=== PATIENT | male | born 1965 | race Caucasian/White ===

== ENCOUNTER 2017-03-31 17:53 | Emergency (ER) | payer MEDICAID, OTHER ==
[~2017-03-31] VITALS: Ht 172.7 cm; Wt 80.0 kg
[~2017-03-31 17:53] MED LIST: ASPI81 PO; PRIL40CA PO; SIMV20 PO; TOPR100T15 PO
[2017-03-31 17:54] VITALS: BP 126/79; PULSE 89; RESP 20; TEMP 98.4; O2SAT 94
[2017-03-31] MEDS ORDERED: IOHEXOL 350 MG/ML 10 ML VIAL (for RAD DIAG) IVCONTRAST ONE (17:54)
--- NOTE | 2017-03-31 18:02 | PD ---
Physical Exam Date Seen by Provider: Mar 31, 2017 Time Seen by Provider: 18:00 Narrative 51 yo male here for evaluation of chron's pain. History of Chrons. Having abdominal pain. Feeling weak. Chest pain as well. Having drainage from abscess. Similar to previous flares. Vitals are stable in triage. Awaiting bed placement. Data Data Last Documented VS Vital Signs Date Time Temp Pulse Resp B/P (MAP) Pulse Ox O2 Delivery O2 Flow Rate FiO2 03/31/17 17:54 98.4 89 20 126/79 (95) 94 Room Air [facility] Medical Record Reviewed: Yes Supervised Visit with VIRA: Pratik Bales Mar 31, 2017 18:02
[2017-03-31 19:12] VITALS: BP 121/71; PULSE 81; RESP 16; O2SAT 95
[2017-03-31] MEDS ORDERED: ZOCO20TA PO (19:17)
[2017-03-31] MEDS ORDERED: TOPR50TA PO (19:17)
[2017-03-31] MEDS ORDERED: OMEP40CA2 PO (19:17)
--- NOTE | 2017-03-31 21:16 | PD ---
HPI Chief Complaint: Medical Clearance Time Seen by Provider: 21:08 Travel History International Travel<30 days: No Contact w/Intl Traveler<30days: No Traveled to known affect area: No History of Present Illness HPI 51 YO M with PMH of Crohn disease presents to the ED for evaluation of "pain all over," rectal abscess. Patient rates his pain 8 /10. No alleviating or exacerbating factors reported. Patient denies fever, chills, nausea, vomiting. He endorses loose bowel movements. He states that he has a rectal drain that' s been in place since July. He was under the care of a colorectal surgeon in [place], prescribed Remicade. Last dose in August. He states that he saw Dr. Vale after moving to [place] who referred him to Dr. Rodriguez. He states that in the interim he has lost his insurance and is unable to see the colorectal surgeon. He treated at home with Tylenol with no improvement of his symptoms. PFSH Past Medical History Medical other: Yes (crohns) Past Surgical History Other Surgery: Yes (inguinal hernia, crohns) Social History Alcohol Use: No Tobacco Use: No Substance Use: No Allergies-Medications (Allergen,Severity, Reaction): Coded Allergies: ibuprofen (Verified Allergy, Severe, RASH, 03/31/17) Reported Meds & Prescriptions Reported Meds & Active Scripts Active Lortab (Hydrocodone-Acetaminophen) 5-325 Mg Tab 1 Tab PO Q6H PRN Zofran Odt (Ondansetron Odt) 4 Mg Tab 4 Mg SL Q6HR PRN Reported Toprol XL (Metoprolol Succinate) 50 Mg Tab 50 Mg PO DAILY Zocor (Simvastatin) 20 Mg Tab 20 Mg PO DAILY Omeprazole 40 Mg Cap 40 Mg PO DAILY Review of Systems Except as stated in HPI: all other systems reviewed are Neg Physical Exam Narrative GENERAL: Well-nourished, well-developed obese white male in no acute distress. SKIN: Focused skin assessment warm/dry. No rash in bilateral groins. HEAD: Normocephalic. EYES: No scleral icterus. No injection or drainage. NECK: Supple, trachea midline. No JVD or lymphadenopathy. CARDIOVASCULAR: Regular rate and rhythm without murmurs, gallops, or rubs. RESPIRATORY: Breath sounds clear and equal bilaterally. No accessory muscle use. GASTROINTESTINAL: Abdomen soft, non-tender, nondistended. Active bowel sounds. RECTAL: Chronic-appearing rectal abscess with drain in place. No surrounding tenderness, erythema, edema. No active drainage. MUSCULOSKELETAL: No cyanosis, or edema. BACK: Nontender without obvious deformity. No CVA tenderness. Data Data Last Documented VS Vital Signs Date Time Temp Pulse Resp B/P (MAP) Pulse Ox O2 Delivery O2 Flow Rate FiO2 04/01/17 00:37 03/31/17 19:12 81 16 95 Room Air 03/31/17 17:54 98.4 Orders Orders Complete Blood Count With Diff (03/31/17 21:38) Comprehensive Metabolic Panel (03/31/17 21:38) C-Reactive Protein (Crp) (03/31/17 21:38) Westergren Sedimentation Rate (03/31/17 21:38) Mandatory Outpatient Referral (03/31/17 21:48) Ct Abd/Pel W Iv Contrast(Rout) (03/31/17 21:59) Morphine Inj (Morphine Inj) (03/31/17 22:45) Iohexol 350 Inj (Omnipaque 350 Inj) (03/31/17 17:54) Ed Discharge Order (03/31/17 23:56) Labs Laboratory Tests Test 03/31/17 21:45 White Blood Count 7.2 TH/MM3 Red Blood Count 4.93 MIL/MM3 Hemoglobin 14.2 GM/DL Hematocrit 42.2 % Mean Corpuscular Volume 85.6 FL Mean Corpuscular Hemoglobin 28.9 PG Mean Corpuscular Hemoglobin Concent 33.7 % Red Cell Distribution Width 13.4 % Platelet Count 220 TH/MM3 Mean Platelet Volume 7.5 FL Neutrophils (%) (Auto) 62.6 % Lymphocytes (%) (Auto) 26.4 % Monocytes (%) (Auto) 7.2 % Eosinophils (%) (Auto) 3.2 % Basophils (%) (Auto) 0.6 % Neutrophils # (Auto) 4.5 TH/MM3 Lymphocytes # (Auto) 1.9 TH/MM3 Monocytes # (Auto) 0.5 TH/MM3 Eosinophils # (Auto) 0.2 TH/MM3 Basophils # (Auto) 0.0 TH/MM3 CBC Comment DIFF FINAL Differential Comment Erythrocyte Sedimentation Rate 24 mm/hr Blood Urea Nitrogen 14 MG/DL Creatinine 0.93 MG/DL Random Glucose 83 MG/DL Total Protein 7.6 GM/DL Albumin 3.5 GM/DL Calcium Level 8.8 MG/DL Alkaline Phosphatase 97 U/L Aspartate Amino Transf (AST/SGOT) 22 U/L Alanine Aminotransferase (ALT/SGPT) 21 U/L Total Bilirubin 0.3 MG/DL Sodium Level 139 MEQ/L Potassium Level 3.9 MEQ/L Chloride Level 102 MEQ/L Carbon Dioxide Level 28.4 MEQ/L Anion Gap 9 MEQ/L Estimat Glomerular Filtration Rate 85 ML/MIN C-Reactive Protein 0.62 MG/DL MDM Medical Decision Making Medical Screen Exam Complete: Yes Emergency Medical Condition: Yes Differential Diagnosis Crohn's flare versus rectal abscess versus bowel obstruction versus intraabdominal abscess versus other Narrative Course 51 YO M with PMH of Crohn disease presents to the ED for evaluation of 01/29 "pain all over," rectal abscess, loose BMs. Patient denies fever, chills, nausea, vomiting. He states that he has a rectal drain that's been in place since July. Placed a colorectal surgeon in [place], prescribed Remicade. Last dose in August. He states that he saw Dr. Vale after moving to [place] who referred him to Dr. Rodriguez. He states that in the interim he has lost his insurance and is unable to see the colorectal surgeon. Patient's afebrile on presentation. Physical exam reveals a nontoxic-appearing obese white male in no acute distress. Abdominal exam is unremarkable. 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 Drain is in place. No active drainage. IV was established. Patient was administered 4 mg morphine IV. CBC, CMP, UA, sedimentation rate, CRP, CT abdomen and pelvis ordered and pending. Patient signed out to Dr. Sanchez at change of shift. Please see her note for disposition. Scripts Hydrocodone-Acetaminophen (Lortab) 5-325 Mg Tab 1 TAB PO Q6H Y for PAIN, #7 TAB 0 Refills Prov: Batsheva Sanchez MD 03/31/17 Ondansetron Odt (Zofran Odt) 4 Mg Tab 4 MG SL Q6HR Y for Nausea/Vomiting, #10 TAB 0 Refills Prov: Batsheva Sanchez MD 03/31/17 Casandra Moore Mar 31, 2017 21:16
[2017-03-31 22:03] LABS: AUTOMATED NEUTROPHIL # 4.5 TH/MM3 (1.8-7.7); BASOPHIL % 0.6 % (0.0-2.0); EOSINOPHIL # 0.2 TH/MM3 (0-0.4); EOSINOPHIL % 3.2 % (0.0-4.0); HEMATOCRIT 42.2 % (39.0-51.0); HEMO FLAGS DIFF FINAL; LYMPH % 26.4 % (9.0-44.0); LYMPHOCYTE # 1.9 TH/MM3 (1.0-4.8); MEAN CELL VOLUME 85.6 FL (80.0-100.0); MEAN CORPUSCULAR HEMOGLOBIN 28.9 PG (27.0-34.0); MEAN CORPUSCULAR HGB CONC 33.7 % (32.0-36.0); MONO % 7.2 % (0.0-8.0); NEUT % 62.6 % (16.0-70.0); PLATELET COUNT 220 TH/MM3 (150-450); RED BLOOD COUNT 4.93 MIL/MM3 (4.50-5.90); RED CELL DISTRIBUTION WIDTH 13.4 % (11.6-17.2); WHITE BLOOD COUNT 7.2 TH/MM3 (4.0-11.0)
[2017-03-31 22:26] LABS: ALT (GPT) 21 U/L (12-78)
[2017-03-31 22:27] LABS: ALKALINE PHOSPHATASE 97 U/L (45-117); TOTAL BILIRUBIN ADULT 0.3 MG/DL (0.2-1.0)
[2017-03-31 22:34] LABS: ANION GAP 9 MEQ/L (5-15); AST (GOT) 22 U/L (15-37); BICARBONATE 28.4 MEQ/L (21.0-32.0); CHLORIDE 102 MEQ/L (98-107); GLOMERULAR FILTRATION RATE 85 ML/MIN (>89); POTASSIUM 3.9 MEQ/L (3.5-5.1); SODIUM (NA) 139 MEQ/L (136-145)
[2017-03-31 22:40] LABS: BLOOD UREA NITROGEN 14 MG/DL (7-18)
[2017-03-31] MEDS ORDERED: MORPHINE SULFATE 4 MG/ML INJ IV PUSH ONE (22:45)
--- NOTE | 2017-03-31 22:49 | RADRPT ---
EXAM DATE/TIME: 03/31/2017 22:33 [facility] COMPARISON: No previous studies available for comparison. INDICATIONS : Abdomen pain with body aches. History of Crohn's. IV CONTRAST: 95 cc Omnipaque 350 (iohexol) IV ORAL CONTRAST: No oral contrast ingested. RADIATION DOSE: 26.42 CTDIvol (mGy) ; Patient body habitus MEDICAL HISTORY : Crohn's disease. SURGICAL HISTORY : None. ENCOUNTER: Initial ACUITY: 1 day PAIN SCALE: 7/10 LOCATION: Bilateral abdomen TECHNIQUE: Volumetric scanning of the abdomen and pelvis was performed. Using automated exposure control and ad justment of the mA and/or kV according to patient size, radiation dose was kept as low as reasonably achievable to obtain optimal diagnostic quality images. DICOM format image data is available electro nically for review and comparison. FINDINGS: LOWER LUNGS: The visualized lower lungs are clear. LIVER: Homogeneous density without lesion. There is no dilation of the biliary tree. No calcified gallston es. SPLEEN: Normal size without lesion. PANCREAS: Within normal limits. KIDNEYS: Normal in size and shape. There is no mass, stone or hydronephrosis. ADRENAL GLANDS: Within normal limits. VASCULAR: There is no aortic aneurysm. BOWEL/MESENTERY: The stomach, small bowel, and colon demonstrate no acute abnormality. There is no free intraperitone al air or fluid. The appendix is unremarkable. The terminal ileum is within normal limits. No definit e inflammatory changes are demonstrated. There some mild diverticulosis of the sigmoid colon without inflammatory changes. ABDOMINAL WALL: Within normal limits. RETROPERITONEUM: A few small nonspecific para-aortic nodes are demonstrated. The largest measuring 1.4 cm at the level of the kidneys. BLADDER: No wall thickening or mass. REPRODUCTIVE: Within normal limits. INGUINAL: There appears to be a right inguinal hernia containing mesenteric fat. Left inguinal region is unrema rkable. A few nonspecific bilateral inguinal lymph nodes. MUSCULOSKELETAL: Within normal limits for patient age. CONCLUSION: 1. No evidence of inflammatory bowel disease is seen at this time. 2. Diverticulosis of the sigmoid without inflammatory changes. 3. A few nonspecific para-aortic lymph nodes are demonstrated. 4. Right inguinal hernia containing mesenteric fat. Randal Conteh MD on March 31, 2017 at 22:43 Board Certified Radiologist. This report was verified electronically.
[2017-03-31] MEDS ORDERED: HYDR-3533 PO (23:59)
[2017-03-31] MEDS ORDERED: ZOFR4TAB3 SL (23:59)
--- NOTE | 2017-04-01 | PD ---
Physical Exam Date Seen by Provider: Mar 31, 2017 Time Seen by Provider: 23:15 Narrative GENERAL: Well-developed well-nourished male in no acute distress no respiratory distress SKIN: Warm and dry. GASTROINTESTINAL: Abdomen soft, non-tender, nondistended. Buttock: Rectal exam deferred however right buttock cheek shows plastic drain in place with scant area of focal induration no active drainage no fluctuance no subcutaneous gas noted to palpation minimally tender to direct palpation. Data Data Last Documented VS Vital Signs Date Time Temp Pulse Resp B/P (MAP) Pulse Ox O2 Delivery O2 Flow Rate FiO2 03/31/17 19:12 81 16 121/71 (88) 95 Room Air 03/31/17 17:54 98.4 Orders Orders Complete Blood Count With Diff (03/31/17 21:38) Comprehensive Metabolic Panel (03/31/17 21:38) C-Reactive Protein (Crp) (03/31/17 21:38) Westergren Sedimentation Rate (03/31/17 21:38) Mandatory Outpatient Referral (03/31/17 21:48) Ct Abd/Pel W Iv Contrast(Rout) (03/31/17 21:59) Morphine Inj (Morphine Inj) (03/31/17 22:45) Iohexol 350 Inj (Omnipaque 350 Inj) (03/31/17 17:54) Ed Discharge Order (03/31/17 23:56) Labs Laboratory Tests Test 03/31/17 21:45 White Blood Count 7.2 TH/MM3 Red Blood Count 4.93 MIL/MM3 Hemoglobin 14.2 GM/DL Hematocrit 42.2 % Mean Corpuscular Volume 85.6 FL Mean Corpuscular Hemoglobin 28.9 PG Mean Corpuscular Hemoglobin Concent 33.7 % Red Cell Distribution Width 13.4 % Platelet Count 220 TH/MM3 Mean Platelet Volume 7.5 FL Neutrophils (%) (Auto) 62.6 % Lymphocytes (%) (Auto) 26.4 % Monocytes (%) (Auto) 7.2 % Eosinophils (%) (Auto) 3.2 % Basophils (%) (Auto) 0.6 % Neutrophils # (Auto) 4.5 TH/MM3 Lymphocytes # (Auto) 1.9 TH/MM3 Monocytes # (Auto) 0.5 TH/MM3 Eosinophils # (Auto) 0.2 TH/MM3 Basophils # (Auto) 0.0 TH/MM3 CBC Comment DIFF FINAL Differential Comment Erythrocyte Sedimentation Rate 24 mm/hr Blood Urea Nitrogen 14 MG/DL Creatinine 0.93 MG/DL Random Glucose 83 MG/DL Total Protein 7.6 GM/DL Albumin 3.5 GM/DL Calcium Level 8.8 MG/DL Alkaline Phosphatase 97 U/L Aspartate Amino Transf (AST/SGOT) 22 U/L Alanine Aminotransferase (ALT/SGPT) 21 U/L Total Bilirubin 0.3 MG/DL Sodium Level 139 MEQ/L Potassium Level 3.9 MEQ/L Chloride Level 102 MEQ/L Carbon Dioxide Level 28.4 MEQ/L Anion Gap 9 MEQ/L Estimat Glomerular Filtration Rate 85 ML/MIN C-Reactive Protein 0.62 MG/DL MDM Medical Record Reviewed: Yes Supervised Visit with VIRA: Yes Interpretation(s) CBC & BMP Diagram 03/31/17 21:45 Total Protein 7.6, Albumin 3.5, Calcium Level 8.8, Alkaline Phosphatase 97, Aspartate Amino Transf (AST/SGOT) 22, Alanine Aminotransferase (ALT/SGPT) 21, Total Bilirubin 0.3 Vital Signs Date Time Temp Pulse Resp B/P (MAP) Pulse Ox O2 Delivery O2 Flow Rate FiO2 03/31/17 19:12 81 16 121/71 (88) 95 Room Air 03/31/17 17:54 98.4 89 20 126/79 (95) [address] abd/pel: CONCLUSION: 1. No evidence of inflammatory bowel disease is seen at this time. 2. Diverticulosis of the sigmoid without inflammatory changes. 3. A few nonspecific para-aortic lymph nodes are demonstrated. 4. Right inguinal hernia containing mesenteric fat. Randal Conteh MD on March 31, 2017 at 22:43 Board Certified Radiologist. This report was verified electronically. Differential Diagnosis Buttock pain, retained drain, fistula, exacerbation inflammatory bowel disease/ Crohn's, diverticulitis Narrative Course Accepted in transfer of care from [facility] for follow-up of imaging study and patient disposition CT abdomen and pelvis reveals no acute intra-abdominal or pelvic process no evidence for active inflammatory bowel disease/Crohn's fistula abscess or diverticulitis; area of buttock discussed with on-call radiologist sees foreign body consistent with possible drain mild area of induration but no abscess or acute process based on what is available to evaluate radiographically Patient's case discussed with on-call colorectal surgeon Dr. Rodriguez who recommends outpatient follow-up and will address removal of drain although not harmful at this time for this patient Patient's information shared with the patient and his spouse at bedside patient is comfortable at this time is aware of imaging results lab results and is stable for outpatient follow-up has mandatory referral to see colorectal surgeon Dr. Rodriguez and is agreeable to this. Physician Communication Physician Communication discussed with Dr Rodriguez --will see as outpatient Diagnosis Primary Impression: Buttock wound Additional Impression: H/O Crohn's disease Referrals: Jose Alejandro Rodriguez MD call for appointment Patient Instructions: General Instructions Additional Instruction: Increase fluid hydration Follow-up with colorectal surgeon Dr. Rodriguez Take acetaminophen/Tylenol as needed for fever 100.4F or greater Take pain medication as prescribed as needed for pain greater than 5/10 in intensity Takes Zofran as prescribed as needed for nausea and/or vomiting Return to the emergency department for any concerns or change in condition Med/Other Pt SpecificInfo: Prescription(s) given Scripts Hydrocodone-Acetaminophen (Lortab) 5-325 Mg Tab 1 TAB PO Q6H Y for PAIN, #7 TAB 0 Refills Prov: Batsheva Sanchez MD 03/31/17 Ondansetron Odt (Zofran Odt) 4 Mg Tab 4 MG SL Q6HR Y for Nausea/Vomiting, #10 TAB 0 Refills Prov: Batsheva Sanchez MD 03/31/17 Disposition: 01 DISCHARGE HOME Condition: Stable Batsheva Sanchez MD Apr 01, 2017 00:00
== END 2017-04-01 00:38 | disposition home or self-care (01) ==
LOC: NEPC 17:53
DX: S31.819A Unspecified open wound of right buttock, initial encounter (principal); K60.4 Rectal fistula; K50.90 Crohn's disease, unspecified, without complications; X58.XXXA Exposure to other specified factors, initial encounter
CPT/HCPCS: 74177; 80053; 85025; 85652; 86140; 96374; 99285; J2270; Q9967

== ENCOUNTER → 2017-04-15 | Day surgery (SDC) | payer OTHER ==
[~2017-04-15] VITALS: Ht 172.7 cm; Wt 130.5 kg
[~2017-04-15] MED LIST changes: -ASPI81 PO; +CHLORHEXIDINE GLUCONATE 2 % 1 PACK (2 CLOTHS) TOPICAL PRN; +DO NOT ADM ANY ANTICOAGULANT DRUGS PRN; +GLYCOPYRROLATE 1 MG/5 ML SYRINGE IV PUSH ONE; +INSULIN HUMAN REGULAR 1,000 UNITS/10 ML VIAL SQ PRN; +LACTATED RINGER'S 1000 ML IV PRN; +LIDOCAINE HCL 1% PF 5 ML AMPULE OTHER ONE; +MAPA500T13 PO; +METOPROLOL TARTRATE 25 MG TAB PO PRN; +MIDAZOLAM HCL 2 MG/2 ML VIAL IV ONE; +MORPHINE SULFATE 2 MG/ML INJ IV PRN; +NEOSTIGMINE 3 MG/3 ML SYR IV ONE; +OMEP40CA2 PO; +ONDANSETRON HCL 4 MG/2 ML VIAL IV PRN; +ONDANSETRON HCL 4 MG/2 ML VIAL IV PUSH ONE; +PHENYLEPH/NS 1000 MCG/10 ML SYR IV ONE; +POVIDONE IODINE 5% (ANTISEPSIS KIT) 4 APPLICATIONS EACH NARE PRN; -PRIL40CA PO; +PROPOFOL 200 MG/20 ML AMP IV ONE; +ROCURONIUM INJ 50 MG/5 ML SYRINGE IV PUSH ONE; +SILVER SULFADIAZINE/LIDOCAINE CREAM 60 GM JAR RECTAL ONE; -SIMV20 PO; +SODIUM CHLORID 0.9% 500 ML IV PRN; -TOPR100T15 PO; +TOPR50TA PO; +ZOCO20TA PO; +oxyCODONE/ACETAMINOPHEN 5 MG/325 MG TAB PO PRN
--- NOTE | 2017-04-15 08:29 | PD.HP.UP ---
H&P Update Note The Pre-Admit History and Physical Examination regarding the above named patient was reviewed (including, but not limited to, vital signs, heart, lungs, co-morbid conditions), and upon re-examination it is noted that: the patient's condition has not significantly changed since the last examination. Jose Alejandro Rodriguez MD Apr 15, 2017 08:29
[2017-04-15 09:05] LABS: AUTOMATED NEUTROPHIL # 4.6 TH/MM3 (1.8-7.7); BASOPHIL % 0.3 % (0.0-2.0); EOSINOPHIL # 0.2 TH/MM3 (0-0.4); EOSINOPHIL % 3.6 % (0.0-4.0); HEMATOCRIT 41.1 % (39.0-51.0); LYMPH % 20.4 % (9.0-44.0); LYMPHOCYTE # 1.4 TH/MM3 (1.0-4.8); MEAN CELL VOLUME 84.6 FL (80.0-100.0); MEAN CORPUSCULAR HEMOGLOBIN 28.9 PG (27.0-34.0); MEAN CORPUSCULAR HGB CONC 34.1 % (32.0-36.0); MEAN PLATELET VOLUME 6.8 FL (7.0-11.0); MONO % 6.8 % (0.0-8.0); MONOCYTE # 0.4 TH/MM3 (0-0.9); NEUT % 68.9 % (16.0-70.0); PLATELET COUNT 213 TH/MM3 (150-450); RED BLOOD COUNT 4.86 MIL/MM3 (4.50-5.90); RED CELL DISTRIBUTION WIDTH 13.3 % (11.6-17.2); WHITE BLOOD COUNT 6.6 TH/MM3 (4.0-11.0)
[2017-04-15 12:42] VITALS: BP 108/74; PULSE 63; RESP 20; TEMP 97.4; O2SAT 94
--- NOTE | 2017-04-15 21:07 | EKG ---
Date Performed: 04/15/2017 Time Performed: 08:30:50 PTAGE: 51 years EKG: Sinus rhythm NORMAL ECG NO PREVIOUS TRACING DOCTOR: Jax Salgado Interpretating Date/Time 04/15/2017 21:05:49
--- NOTE | 2017-04-15 21:07 | EKG ---
Date Performed: 04/15/2017 Time Performed: 08:30:50 PTAGE: 51 years EKG: Sinus rhythm NORMAL ECG NO PREVIOUS TRACING DOCTOR: Jax Salgado Interpretating Date/Time 04/15/2017 21:05:49
--- NOTE | 2017-04-15 21:07 | EKG ---
Date Performed: 04/15/2017 Time Performed: 08:30:50 PTAGE: 51 years EKG: Sinus rhythm NORMAL ECG NO PREVIOUS TRACING DOCTOR: Jax Salgado Interpretating Date/Time 04/15/2017 21:05:49
--- NOTE | 2017-04-17 07:57 | MP ---
cc: FRANSISCO SERNA M.D. DATE OF SURGERY 01/13/2017 PREOPERATIVE DIAGNOSIS History of Crohn's disease, multiple anal fistulas. PROCEDURE 1. Colonoscopy 2. Exam under anesthesia with fistulotomy and sphincterotomies. POSTOPERATIVE DIAGNOSIS 1. Normal colon 2. History of Crohn's disease, multiple perianal fistulas. SURGEON Dr. Serna PROCEDURE After the patient was placed in the supine position, after adequate anesthesia sedation, he was turned to the left lateral position. Rectal exam confirmed the emptiness of the rectal vault. The Olympus colonoscope was introduced into the rectum and advanced easily under direct vision through the proximal colon until the cecum and right colon were visualized. No evidence of any inflammatory changes were noted. The scope was gradually withdrawn noting normal mucosa throughout the colon without any polyps of luminal narrowing. Some diverticulosis was seen in the rectosigmoid. The rectal vault was pretty unremarkable. Next, the patient was positioned in the prone jackknife position. His buttocks taped apart, prepped with Betadine solution and draped in the usual sterile fashion. The anal canal was dilated and a half-varela retractor inserted. Examination revealed several setons which had been previously placed and at least fistulas around the anorectal ring in the anterior quadrants one of which appeared to go toward the anterior midline. Setons were progressively removed and fistulotomy performed opening up the tracts which appeared to connect together. After adequate fistulotomy, the internal opening was also opened, dividing some of the internal sphincter for completion fistulotomy. The granulation tissue was then taken out of the base of the tracts and some of the soft tissue was removed for more debridement and good drainage. The wounds were irrigated with saline. Hemostasis achieved. Surgicel dressing placed into the open cavities and a large fluff dressing placed externally. The patient tolerated the procedure quite well and was brought to the recovery room in stable condition. MD BRIANNA Huitron/ADOLFO /10:09 PM /7:41 AM
== END | disposition home or self-care (01) ==
LOC: HSDC 07:47
PROVIDERS: ATTEND Colon & Rectal Surgery
DX: K60.3 Anal fistula (principal); K50.90 Crohn's disease, unspecified, without complications; I10 Essential (primary) hypertension
CPT/HCPCS: 00902; 46080; 85025; 88304; 93005; J2250; J2370; J2405; J2710; J3010